=== PATIENT | female | born 1945 | race Caucasian/White ===

== ENCOUNTER 2017-07-06 11:10 | Inpatient (IN) | payer OTHER, MEDICAID ==
--- NOTE | 2017-07-06 11:20 | ED Physician Chart ---
ED Chief Complaint/HPI - Patient Information Date Seen:: 07/06/17 Time Seen:: 11:18 Chief Complaint:: Cough and SOB History of Present Illness:: 71 yo female had cold symptoms for 1 week, followed by headache, SOB, cough productive of purulent sputum for 1 day. She denied fever. 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) Social History: Non Smoker, No Alcohol, No Drug Use Surgical History: (x 1) Family Medical History - Family Member Mother History Unknown: Yes Hx Family Hypertension: Yes Hx Family Diabetes: Yes ED Physical Exam - Physical Examination General/Constitutional: Awake, Alert Head: Atraumatic Eyes: PERRL, EOMI Skin: No ecchymosis ENMT: Nasal exam nl Neck: No nuchal rigidity Other Respiratory comments:: Cough, Rales worse RLL Cardio Vascular: RRR, No murmur, gallop, rubs, NL S1 S2 GI: No tenderness/rebounding/guarding Extremities: normal strength in all extremities Neuro/Psych: No focal deficits ED Labs/Radiology/EKG Results - Radiology Results Results: CXR: Right lung apex infiltrate possibly from previous TB infection BLE venous u/s: no evidence of DVT ED Assessment - Assessment General Assessment: Bronchitis Leukocytosis Hypoxemia Elevated D-dimer possibly due to age and infection Assessment/Comments:: CBC, CMP CXR, ABG DuoNeb Rocephin Zithromycin B/L lower extremity u/s Admit to telemetry ED Septic Shock - . Is Septic Shock (SBP<90, OR Lactate>4 mmol\L) present?: No ED Reassessment (Disposition) - Reassessment Reassessment Condition:: Improved - Patient Disposition Discharge/Transfer:: Acute Care w/in this hosp Admitting Medical Physician:: Edward Herr ED Discharge Plan - Patient Disposition Admit/Discharge/Transfer: Acute Care w/in this hosp
[2017-07-06] MEDS ORDERED: Albuterol/Ipratropium Neb 3 ML AERS HHN ONE ×2 (11:22→11:27)
[2017-07-06 12:06] LABS: % MONOCYTES 8.1 % (2.0-10.0); BASOPHILE ABSOLUTE 0.1 Th/cumm (0-0.2); EOSINOPHILE ABSOLUTE 0.3 Th/cmm (0.1-0.4)
[2017-07-06 12:07] LABS: ALB/GLOB RATIO 1.2 (1.0-1.8); ALBUMIN 4.3 gm/dL (3.7-5.3); ALKALINE PHOSPHATASE 93 U/L (34-104); BILIRUBIN,TOTAL 0.5 mg/dL (0.3-1.0); BUN - UREA NITROGEN 15 mg/dL (7-25); CALCIUM SERUM 9.8 mg/dL (8.6-10.3); CARBON DIOXIDE 29.8 mEq/L (21.0-31.0); CHLORIDE 99 mEq/L (98-107); CREATININE - SERUM 0.4 mg/dL (0.6-1.2); GFR AFRICAN-AMERICAN > 60.0 ml/min (>90); GFR NON AFRICAN-AMERICAN > 60.0 ml/min; GLUCOSE 159 mg/dL (70-105); POTASSIUM SERUM 3.8 mEq/L (3.5-5.1); SGOT 19 U/L (13-39); SGPT/ALT 33 U/L (7-52); SODIUM SERUM 136 mEq/L (136-145)
[2017-07-06 12:09] LABS: % BASOPHILS 0.4 % (0.0-2.0); % EOSINOPHILS 2.3 % (0.0-5.0); % NEUTROPHILS 77.2 % (40.0-80.0); HEMATOCRIT 38.8 % (41.0-60); LYMPHOCYTE ABSOLUTE 1.5 Th/cmm (1.5-3.0); MEAN CELL VOLUME 91.3 fl (81-100); MEAN CORPUSCULAR HEMOGLOBIN 30.6 pg (27.0-31.0); MEAN CORPUSCULAR HGB CONC 33.5 pg (28.0-36.0); MEAN PLATELET VOLUME 8.7 fl; NEUTROPHILE ABSOLUTE 9.9 Th/cmm (1.8-8.0); PLATELET COUNT 232 Th/cmm (150-400); RED BLOOD COUNT 4.25 Mil/cmm (3.80-5.20); RED CELL DISTRIBUTION WIDTH 12.5 % (11.5-20.0)
[2017-07-06 12:10] LABS: WHITE BLOOD COUNT 12.8 Th/cmm (4.8-10.8)
[2017-07-06] MEDS ORDERED: cefTRIAXone 1 GM in Sodium Chloride 0.9% 50 ML IV ONE (12:18)
[2017-07-06] MEDS ORDERED: Azithromycin 500 MG in Sodium Chloride 0.9% 250 ML IV ONE (12:18)
[2017-07-06 12:49] LABS: pH 7.46 (7.35-7.45)
[2017-07-06 12:51] LABS: ALLEN TEST Positive
[2017-07-06] MEDS ORDERED: Sodium Chloride 0.9% 1,000 ML IV ONE (13:11)
[2017-07-06] MEDS ORDERED: Sodium Chloride 0.9% 1,000 ML IV SCH (16:07)
[2017-07-06] MEDS ORDERED: Pneumococcal Vaccine 0.5 mL Vial IM ONE (16:59)
[2017-07-06] MEDS ORDERED: INSULIN ASPART SLIDING SCALE 100 UNITS/ML UNIT SUBQ SCH (18:00)
[2017-07-06] MEDS: Atorvastatin Calcium 10 MG TAB PO SCH (21:13)
[2017-07-06] MEDS: INSULIN ASPART SLIDING SCALE 100 UNITS/ML UNIT SUBQ SCH (21:43)
[2017-07-07] MEDS: Promethazine DM 6.25/15mg-5mL 5 ML SYR PO PRN ×3 (03:09→21:22)
[2017-07-07 06:26] LABS: % BASOPHILS 0.1 % (0.0-2.0); % EOSINOPHILS 2.1 % (0.0-5.0); % LYMPHOCYTES 15.2 % (20.0-50.0); % NEUTROPHILS 73.6 % (40.0-80.0); EOSINOPHILE ABSOLUTE 0.3 Th/cmm (0.1-0.4); LYMPHOCYTE ABSOLUTE 2.5 Th/cmm (1.5-3.0); MEAN CELL VOLUME 90.9 fl (81-100); MEAN CORPUSCULAR HEMOGLOBIN 31.3 pg (27.0-31.0); MEAN CORPUSCULAR HGB CONC 34.4 pg (28.0-36.0); MEAN PLATELET VOLUME 8.9 fl; MONOCYTE ABSOLUTE 1.5 Th/cmm (0.3-1.0); NEUTROPHILE ABSOLUTE 12.2 Th/cmm (1.8-8.0); PLATELET COUNT 219 Th/cmm (150-400); RED BLOOD COUNT 3.84 Mil/cmm (3.80-5.20); RED CELL DISTRIBUTION WIDTH 12.5 % (11.5-20.0)
[2017-07-07 06:42] LABS: ALB/GLOB RATIO 1.1 (1.0-1.8); ALBUMIN 3.7 gm/dL (3.7-5.3); ALKALINE PHOSPHATASE 76 U/L (34-104); BILIRUBIN,TOTAL 0.7 mg/dL (0.3-1.0); BUN - UREA NITROGEN 10 mg/dL (7-25); CARBON DIOXIDE 28.3 mEq/L (21.0-31.0); CHLORIDE 103 mEq/L (98-107); CREATININE - SERUM 0.4 mg/dL (0.6-1.2); GFR AFRICAN-AMERICAN > 60.0 ml/min (>90); GFR NON AFRICAN-AMERICAN > 60.0 ml/min; GLUCOSE 126 mg/dL (70-105); POTASSIUM SERUM 3.3 mEq/L (3.5-5.1); SGOT 14 U/L (13-39); SGPT/ALT 24 U/L (7-52); SODIUM SERUM 138 mEq/L (136-145)
[2017-07-07 06:59] LABS: WHITE BLOOD COUNT 16.5 Th/cmm (4.8-10.8)
--- NOTE | 2017-07-07 07:24 | Diagnostic Imaging Report ---
Portable chest x-ray Time: 1153 hours History: Cough Allowing for portable technique the heart size is normal. No focal pulmonary parenchymal processes. No hilar or mediastinal abnormalities. Ill-defined haziness is noted in the right apex comparison studies recommended. If. Is not available for review, follow-up examination is recommended. CT examination of chest on the helpful. Impression: 1. No acute abnormalities. 2. Ill-defined density in the right apex might represent scarring, clinical correlation is recommended.
--- NOTE | 2017-07-07 07:27 | Diagnostic Imaging Report ---
Exam: Ultrasound examination deep venous circulation lower extremities. HISTORY: DVT Findings: Real-time ultrasound exam of the lower extremities performed multiple planes utilizing color Doppler technique. The study demonstrates normal compressibility and augmentation of deep venous system throughout. IMPRESSION: No evidence of deep venous thrombosis lower extremities bilaterally.
--- NOTE | 2017-07-07 09:04 | History and Physical ---
History of Present Illness - HPI Chief Complaint: Cough and fever HPI: Patient refer that one week ago started with cough and fever, latelly she has having cough with green mucus. She had SOB and came to ER for evaluation. 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 Pertinent Hx GI: Report: No Pertinent Hx Psych: Report: No Pertinent Hx Musculoskeletal: Report: No Pertinent Hx Rheumatologic: Report: No pertinent Hx Infectious Disease: Report: No Pertinent Hx Renal/: Report: No Pertinent Hx Endocrine: Report: Diabetes Dermatology: Report: No Pertinent Hx - Past Surgical History Past Surgical History: Other (One ) Family Medical History - Family Member Mother History Unknown: Yes Hx Family Hypertension: Yes Hx Family Diabetes: Yes Social History Smoke: No Alcohol: None Drugs: None Lives: With Family Domestic Violence: Negative - Medications Home Medications: Home Medication Medication Instructions Recorded Type metFORMIN [Glucophage] 500 mg PO BID 03/05/12 History Atorvastatin Calcium [Lipitor] 20 mg PO HS 07/06/17 History Ibuprofen [Motrin*] 600 mg PO Q6H PRN 07/06/17 History - Allergies Allergies/Adverse Reactions: Allergies Allergy/AdvReac Type Severity Reaction Status Date / Time No Known Allergies Allergy Verified 07/06/17 11:22 Review of Systems - Review of Systems Constitutional: Report: Weakness Eyes: Report: No Significant ENT: Report: No Significant Respiratory: Report: Cough, Shortness of Breath, Wheezing Cardiovascular: Report: No Significant Gastrointestinal: Report: No Significant Genitourinary: Report: No Significant Musculoskeletal: Report: No Significant Skin: Report: No Significant Neurological: Report: No Significant Physical Exam - Physical Exam HEENT: Report: Ears Nose Throat within normal limits Neck: Report: Within normal limits Cardiovascular Systems: Report: Regular, Rate and Rhythm Respiratory: Report: Wheezing, Rhonchi Abdomen: Report: Non-tender to palpation Back: Report: Inspection of back is within normal limits. Extremities: Report: Non-tender to palpation. Skin: Report: Color of skin is within normal limits Neuro/Psych: Report: Mood affect is within normal limits - Lab Results All Lab Results last 24 hours: Laboratory Results - last 24 hr 07/06/17 07/06/17 07/07/17 17:43 21:30 05:17 WBC 16.5 H D RBC 3.84 Hgb 12.0 Hct 35.0 L MCV 90.9 MCH 31.3 H MCHC Differential 34.4 RDW 12.5 Plt Count 219 MPV 8.9 Neutrophils % 73.6 Lymphocytes % 15.2 L Monocytes % 9.0 Eosinophils % 2.1 Basophils % 0.1 Sodium Potassium Chloride Carbon Dioxide Anion Gap BUN Creatinine Est GFR ( Amer) Est GFR (Non-Af Amer) BUN/Creatinine Ratio Glucose POC Glucose 145 H 140 H Calcium Total Bilirubin AST ALT Alkaline Phosphatase Total Protein Albumin Globulin Albumin/Globulin Ratio 07/07/17 05:17 WBC RBC Hgb Hct MCV MCH MCHC Differential RDW Plt Count MPV Neutrophils % Lymphocytes % Monocytes % Eosinophils % Basophils % Sodium 138 Potassium 3.3 L Chloride 103 Carbon Dioxide 28.3 Anion Gap 10.0 BUN 10 Creatinine 0.4 L Est GFR ( Amer) > 60.0 Est GFR (Non-Af Amer) > 60.0 BUN/Creatinine Ratio 25.0 Glucose 126 H POC Glucose Calcium 9.0 Total Bilirubin 0.7 AST 14 ALT 24 Alkaline Phosphatase 76 Total Protein 7.0 Albumin 3.7 Globulin 3.3 Albumin/Globulin Ratio 1.1 - Assessment Assessment: Current Active Problems Problem Status Onset DYSPNEA WITH COUGH AND HEADACHE Acute Patient is awake, alert, calm in no acute distress. Dx: Bronchitis, DM. - Plan Plan: Patient in Ceftriaxone, Breathing treatment, insulin scale. CT angio will be done. Consult with Pulmonology request. Will continue to monitor.
[2017-07-07] MEDS ORDERED: IOHEXOL 350mgI/mL 150mL IV ONE (09:20)
[2017-07-07] MEDS: INSULIN ASPART SLIDING SCALE 100 UNITS/ML UNIT SUBQ SCH ×3 (09:30→21:22)
[2017-07-07] MEDS ORDERED: Albuterol Nebulizer 2.5mg/3mL HHN ONE (09:36)
[2017-07-07] MEDS: Albuterol Nebulizer 2.5mg/3mL HHN SCH ×3 (09:37→18:53)
[2017-07-07] MEDS: cefTRIAXone 1 GM in Sodium Chloride 0.9% 50 ML IV SCH (12:58)
[2017-07-07] MEDS: Potassium Chloride Elixir 20 mEq /15 mL UDC GT SCH (12:58)
[2017-07-07] MEDS ORDERED: Sodium Chloride 0.9% 1,000 ML IV SCH (19:08)
[2017-07-07] MEDS: Atorvastatin Calcium 10 MG TAB PO SCH (21:09)
[2017-07-07] MEDS: methylPREDNISolone SS 40 mg Vial IVP SCH (21:10)
[2017-07-08] MEDS: Albuterol Nebulizer 2.5mg/3mL HHN SCH ×3 (00:27→13:18)
[2017-07-08] MEDS: methylPREDNISolone SS 40 mg Vial IVP SCH ×2 (05:08→12:47)
[2017-07-08 05:34] LABS: HEMATOCRIT 34.5 % (41.0-60); HEMOGLOBIN 11.8 gm/dL (12-16); MEAN CORPUSCULAR HEMOGLOBIN 31.2 pg (27.0-31.0)
[2017-07-08 05:46] LABS: % BASOPHILS 0.4 % (0.0-2.0); % EOSINOPHILS 0.1 % (0.0-5.0); % LYMPHOCYTES 6.7 % (20.0-50.0); % MONOCYTES 1.4 % (2.0-10.0); % NEUTROPHILS 91.4 % (40.0-80.0); LYMPHOCYTE ABSOLUTE 0.8 Th/cmm (1.5-3.0); MEAN CELL VOLUME 91.4 fl (81-100); MEAN CORPUSCULAR HGB CONC 34.1 pg (28.0-36.0); MONOCYTE ABSOLUTE 0.2 Th/cmm (0.3-1.0); NEUTROPHILE ABSOLUTE 10.8 Th/cmm (1.8-8.0); PLATELET COUNT 217 Th/cmm (150-400); RED BLOOD COUNT 3.77 Mil/cmm (3.80-5.20); RED CELL DISTRIBUTION WIDTH 12.4 % (11.5-20.0)
[2017-07-08 05:47] LABS: WHITE BLOOD COUNT 11.8 Th/cmm (4.8-10.8)
[2017-07-08 05:55] LABS: ALB/GLOB RATIO 1.1 (1.0-1.8); ALBUMIN 3.8 gm/dL (3.7-5.3); ALKALINE PHOSPHATASE 85 U/L (34-104); ANION GAP 10.3 (7.0-16.0); BILIRUBIN,TOTAL 0.5 mg/dL (0.3-1.0); BUN - UREA NITROGEN 13 mg/dL (7-25); CARBON DIOXIDE 24.6 mEq/L (21.0-31.0); CHLORIDE 102 mEq/L (98-107); CREATININE - SERUM 0.4 mg/dL (0.6-1.2); GFR AFRICAN-AMERICAN > 60.0 ml/min (>90); GFR NON AFRICAN-AMERICAN > 60.0 ml/min; POTASSIUM SERUM 3.9 mEq/L (3.5-5.1); SGOT 20 U/L (13-39); SGPT/ALT 31 U/L (7-52); SODIUM SERUM 133 mEq/L (136-145); TOTAL PROTEIN,SERUM 7.4 gm/dL (6.0-8.3)
[2017-07-08 05:56] LABS: GLUCOSE 261 mg/dL (70-105)
[2017-07-08] MEDS: Potassium Chloride Elixir 20 mEq /15 mL UDC GT SCH (09:07)
[2017-07-08] MEDS: INSULIN ASPART SLIDING SCALE 100 UNITS/ML UNIT SUBQ SCH (09:10)
[2017-07-08] MEDS: Promethazine DM 6.25/15mg-5mL 5 ML SYR PO PRN (09:17)
--- NOTE | 2017-07-08 11:35 | Diagnostic Imaging Report ---
CT Chest without IV contrast HISTORY: Mass COMPARISON: Chest x-ray 07/06/2017. Technique: Axial images were obtained from the base of the neck to the upper abdomen without IV contrast. Reconstructions were made. Total DLP to 63, CTD I 7.6 Findings: Evaluation of the mediastinum is limited due to lack of IV contrast. A few borderline prominent mediastinal lymph nodes are noted the largest located within the precarinal region measuring 1.5 x 0.9 cm. Heart size is normal. Mild atherosclerotic vascular disease is noted. No evidence of any aortic aneurysm. No evidence of a pericardial effusion. The lung adame demonstrates diffuse chronic lung changes with linear densities which may be due to atelectasis versus scarring. Mild areas of bronchiectasis are noted most pronounced within the right upper lobe. There are also ill defined right apical infiltrates with mild volume loss in this region and right apical pleural thickening. Bibasal pleural thickening is also noted. Small hiatal hernia is noted. The upper abdomen demonstrates 2.5 cm right adrenal nodule with areas of Hounsfield units measuring less than 10. Small gallstones are noted with contracted gallbladder. Diffuse degenerative changes of the spine are noted with moderate chronic compression deformity of T12. IMPRESSION: Right upper lobe ill-defined infiltrates extending to the apex. Findings may be due to infectious or neoplastic etiology. Short-term follow-up after resolution of acute symptoms is recommended to ensure resolution. Correlation with old exams also be helpful. Chronic lung changes with areas of bronchiectasis greatest within the right upper lobe. Borderline prominent mediastinal lymph nodes, nonspecific 2.5 cm right adrenal nodule with Hounsfield units suggestive of a lipid rich adenoma. Correlation with clinical findings of old exams is recommended. In addition short-term follow surveillance is recommended given findings on CT of the chest to ensure stability. Gallstones within contracted gallbladder. Mild atherosclerotic vascular disease Small hiatal hernia.
[2017-07-08 12:21] LABS: A1C % 7.7 % (4.0-6.0)
[2017-07-08] MEDS: cefTRIAXone 1 GM in Sodium Chloride 0.9% 50 ML IV SCH (12:46)
--- NOTE | 2017-07-08 14:37 | Discharge Summary ---
General Discharge Summary - Discharge Summary Date of Admission: 07/06/17 Admitting Diagnosis: Bronchitis, DM Patient Problems: All Active Problems DYSPNEA WITH COUGH AND HEADACHE (Acute) Discharge Date: 07/08/17 Discharge Diagnosis: Pneumonia, DM Laboratory Findings: Laboratory Tests 07/06/17 07/06/17 07/07/17 17:43 21:30 05:17 WBC 16.5 H D RBC 3.84 Hgb 12.0 Hct 35.0 L MCV 90.9 MCH 31.3 H MCHC Differential 34.4 RDW 12.5 Plt Count 219 MPV 8.9 Neutrophils % 73.6 Lymphocytes % 15.2 L Monocytes % 9.0 Eosinophils % 2.1 Basophils % 0.1 Sodium Potassium Chloride Carbon Dioxide Anion Gap BUN Creatinine Est GFR ( Amer) Est GFR (Non-Af Amer) BUN/Creatinine Ratio Glucose POC Glucose 145 H 140 H Hemoglobin A1c % Calcium Total Bilirubin AST ALT Alkaline Phosphatase Total Protein Albumin Globulin Albumin/Globulin Ratio 07/07/17 07/07/17 07/07/17 05:17 09:27 13:39 WBC RBC Hgb Hct MCV MCH MCHC Differential RDW Plt Count MPV Neutrophils % Lymphocytes % Monocytes % Eosinophils % Basophils % Sodium 138 Potassium 3.3 L Chloride 103 Carbon Dioxide 28.3 Anion Gap 10.0 BUN 10 Creatinine 0.4 L Est GFR ( Amer) > 60.0 Est GFR (Non-Af Amer) > 60.0 BUN/Creatinine Ratio 25.0 Glucose 126 H POC Glucose 116 H 218 H Hemoglobin A1c % Calcium 9.0 Total Bilirubin 0.7 AST 14 ALT 24 Alkaline Phosphatase 76 Total Protein 7.0 Albumin 3.7 Globulin 3.3 Albumin/Globulin Ratio 1.1 07/07/17 07/08/17 07/08/17 21:17 05:15 05:15 WBC 11.8 H D RBC 3.77 L Hgb 11.8 L Hct 34.5 L MCV 91.4 MCH 31.2 H MCHC Differential 34.1 RDW 12.4 Plt Count 217 MPV 9.0 Neutrophils % 91.4 H Lymphocytes % 6.7 L Monocytes % 1.4 L Eosinophils % 0.1 Basophils % 0.4 Sodium 133 L Potassium 3.9 Chloride 102 Carbon Dioxide 24.6 Anion Gap 10.3 BUN 13 Creatinine 0.4 L Est GFR ( Amer) > 60.0 Est GFR (Non-Af Amer) > 60.0 BUN/Creatinine Ratio 32.5 Glucose 261 H D POC Glucose 158 H Hemoglobin A1c % Calcium 9.0 Total Bilirubin 0.5 AST 20 ALT 31 Alkaline Phosphatase 85 Total Protein 7.4 Albumin 3.8 Globulin 3.6 Albumin/Globulin Ratio 1.1 07/08/17 05:15 WBC RBC Hgb Hct MCV MCH MCHC Differential RDW Plt Count MPV Neutrophils % Lymphocytes % Monocytes % Eosinophils % Basophils % Sodium Potassium Chloride Carbon Dioxide Anion Gap BUN Creatinine Est GFR ( Amer) Est GFR (Non-Af Amer) BUN/Creatinine Ratio Glucose POC Glucose Hemoglobin A1c % 7.7 H Calcium Total Bilirubin AST ALT Alkaline Phosphatase Total Protein Albumin Globulin Albumin/Globulin Ratio Hospital Course: Patient responded to treatment WBC improved, patient no longer with SOB, O2 sat WNL. Treatment: Patient received IV NS, Ceftriaxone IV, Albuterol breathing treatment and nasal O2. Condition at Discharge: Stable Disposition: PT DISCHARGED HOME Home Medications: Home Medication Medication Instructions Recorded Type metFORMIN [Glucophage] 500 mg PO BID 03/05/12 History Atorvastatin Calcium [Lipitor] 20 mg PO HS 07/06/17 History Ibuprofen [Motrin*] 600 mg PO Q6H PRN 07/06/17 History Inpatient Medications: Current Medications Acetaminophen (Tylenol) 650 mg PO Q6H PRN PRN Reason: Pain (Mild) Stop: 09/04/17 22:59 Last Admin: 07/06/17 23:17 Dose: 650 mg Albuterol Sulfate (Albuterol 2.5mg/3ml Neb Ud) 2.5 mg HHN Q6HRT [facility] Stop: 09/05/17 09:14 Last Admin: 07/08/17 13:18 Dose: 2.5 mg Atorvastatin Calcium (Lipitor) 20 mg PO HS [facility] Stop: 09/04/17 20:59 Last Admin: 07/07/17 21:09 Dose: 20 mg Ceftriaxone Sodium 1 gm/ (Sodium Chloride) 50 mls @ 100 mls/hr IV Q24HR [facility] Stop: 09/05/17 11:59 Last Admin: 07/08/17 12:46 Dose: 100 mls/hr Sodium Chloride (Nacl 0.9%) 1,000 mls @ 40 mls/hr IV .Q24H [facility] Stop: 09/04/17 16:06 Last Infusion: 07/08/17 06:23 Dose: 40 mls/hr Insulin Aspart (Novolog Insulin Sliding Scale) 0 units SUBQ TID [facility] PRN Reason: Protocol Stop: 09/04/17 20:59 Last Admin: 07/08/17 09:10 Dose: 10 units Methylprednisolone Sodium Succinate (Solu-Medrol) 40 mg IVP Q8HR [facility] Stop: 09/05/17 20:59 Last Admin: 07/08/17 12:47 Dose: 40 mg Potassium Chloride (Potassium Chloride Elixir) 20 meq GT DAILY [facility] Stop: 09/05/17 08:59 Last Admin: 07/08/17 09:07 Dose: 20 meq Promethazine HCl/Dextromethorphan (Phenergan Dm 6.25/15mg-5 Ml) 5 ml PO Q6HR PRN PRN Reason: Cough Stop: 09/04/17 23:00 Last Admin: 07/08/17 09:17 Dose: 5 ml Activity: As Tolerated Discharge Diet: Regular Consults and Follow-Up: MELIDA HUIZAR [Other] Consulting Speciality: Other (PCP)
--- NOTE | 2017-07-08 15:43 | Consultation ---
DATE OF CONSULTATION: 07/07/2017 REFERRING PHYSICIAN: Dr. Herr. Thank you very much for this consultation. HISTORY OF PRESENT ILLNESS: This is a 71-year-old female who presents with cough, congestion, some shortness of breath and phlegm production. The patient states she has been sick for a few days and came in and started on IV antibiotics, nebulizer treatment. Upon further questioning, the patient mentioned she has history of tuberculosis over 24 years ago, stayed in the hospital for 3 months, treated for it. No diaphoresis, no weight loss, no night sweats. SOCIAL HISTORY: Smoker quit over 20 years ago. PHYSICAL EXAMINATION: GENERAL: Awake, alert, not in acute distress. VITAL SIGNS: Temperature 98.1, pulse 100, respiration 18, blood pressure 142/57, saturation 100% room air. HEENT: Atraumatic, normocephalic. Pupils react to light and accommodation. Ears, nose, and throat normal. NECK: Supple. No JVD. CHEST: There is rhonchi and wheezing bilaterally. HEART: Regular rate and rhythm. ABDOMEN: Soft. EXTREMITIES: No edema. DIAGNOSTIC DATA: Chest x-ray, some pulmonary congestion, right apical lesion. LABORATORY DATA: WBC 16.5, hemoglobin 12.0, platelets 219. Sodium is 130, potassium 3.3, BUN is 10, creatinine 0.4. D-dimer mildly elevated. IMPRESSION: 1. This is a 71-year-old female with acute bronchitis. 2. History of old tuberculosis, right upper lobe related to the apical scar from the previous infection. PLAN: 1. IV antibiotics. 2. Nebulizer. 3. Solu-Medrol for bronchospasm. 4. CTA chest, no need for contrast, for further evaluation. Thank you very much for this consultation. I will follow the patient with you. JOB# [id number] [email or web address]
== END 2017-07-08 16:00 | disposition home or self-care (01) | DRG 871 ==
LOC: ER 11:10 → TELE 14:31
PROVIDERS: ADMIT General Practice; ATTEND General Practice
DX: A41.9 Sepsis, unspecified organism (principal); J18.9 Pneumonia, unspecified organism; E11.9 Type 2 diabetes mellitus without complications; J20.9 Acute bronchitis, unspecified; I25.10 Atherosclerotic heart disease of native coronary artery without angina pectoris; E78.5 Hyperlipidemia, unspecified; R09.02 Hypoxemia; Z82.49 Family history of ischemic heart disease and other diseases of the circulatory system; Z83.3 Family history of diabetes mellitus; Z79.84 Long term (current) use of oral hypoglycemic drugs; Z87.891 Personal history of nicotine dependence
CPT/HCPCS: 36415-UA; 36600-90; 71045-TC; 71250-TC; 80053-TC; 82803-TC; 82948-90; 83036-90; 83605; 83880-TC; 84484-TC; 85007-TC; 85025-TC; 85027-TC; 85379-TC; 93005; 93970-TC-50; 94640; 94760; J0456; J0696; J1815; J2920; J7030; J7613; Z7610

== ENCOUNTER 2018-06-04 09:09 | Emergency (ER) | payer OTHER, MEDICAID ==
--- NOTE | 2018-06-04 09:20 | ED Physician Chart ---
ED Chief Complaint/HPI - Patient Information Date Seen:: 06/04/18 Time Seen:: 09:10 Chief Complaint:: dysuria History of Present Illness:: Patient's had dysuria for 8 days. No chills, fever, back pain. No abdominal pain. Allergies:: Allergies Allergy/AdvReac Type Severity Reaction Status Date / Time No Known Allergies Allergy Verified 07/06/17 11:22 Historian:: Patient Review:: Nurse's Note Reviewed ED Review of Systems - Review of Systems General/Constitutional: No fever, No chills Skin: No skin lesions Head: No headache Eyes: No loss of vision ENT: No earache Neck: No neck pain Cardio Vascular: No chest pain Pulmonary: No SOB GI: No nausea, No vomiting, No diarrhea G/U: Dysuria Musculoskeletal: No bone or joint pain Endocrine: No polyuria Psychiatric: No prior psych history, No depression Hematopoietic: No bruising Allergic/Immuno: No urticaria Neurological: No syncope ED Past Medical History - Past Medical History Past Medical History: DM Family History: Diabetes Melitus Social History: Non Smoker, No Alcohol Surgical History: None Psychiatricy History: Depression Medication: Reviewed Family Medical History - Family Member Mother History Unknown: Yes Hx Family Hypertension: Yes Hx Family Diabetes: Yes ED Physical Exam - Physical Examination General/Constitutional: Awake, Well-developed, well-nourished, Alert, No distress, GCS 15, Non-toxic appearing, Ambulatory Head: Atraumatic Eyes: Lids, conjuctiva normal, PERRL, EOMI Skin: Nl inspection, No rash, No skin lesions, No ecchymosis, Well hydrated, No lymphadenopathy ENMT: External ears, nose nl, Nasal exam nl, Lips, teeth, gums nl Neck: Nontender, Full ROM w/o pain, No JVD, No nuchal rigidity, No bruit, No mass, No stridor Respiratory: Nl effort/Exclusion, Clear to Auscultation, No Wheeze/Rhonchi/Rales Cardio Vascular: RRR, No murmur, gallop, rubs, NL S1 S2 GI: No tenderness/rebounding/guarding, No organomegaly, No hernia, Normal BS's, Nondistended, No mass/bruits, No McBurney tenderness : No CVA tenderness Extremities: No tenderness or effusion, Full ROM, normal strength in all extremities, No edema, Normal digits & nails Neuro/Psych: Alert/oriented, DTR's symmetric, Normal sensory exam, Normal motor strength, Judgement/insight normal, Mood normal, Normal gait, No focal deficits Misc: Normal back, No paraspinal tenderness ED Labs/Radiology/EKG Results - Lab Results Results: Abnormal Lab Results 06/04/18 09:20 Urine Source RANDOM Urine Color YELLOW Urine Clarity CLOUDY H Urine pH 6.0 Ur Specific [place] 1.025 Urine Protein TRACE Urine Glucose (UA) NEGATIVE Urine Ketones NEGATIVE Urine Blood SMALL H Urine Nitrate POSITIVE H Urine Bilirubin NEGATIVE Urine Urobilinogen 0.2 Ur Leukocyte Esterase MODERATE H Urine RBC 2-5 Urine WBC >100 H Ur Epithelial Cells FEW Urine Bacteria 4+ H ED Septic Shock - . Is Septic Shock (SBP<90, OR Lactate>4 mmol\L) present?: No ED Reassessment (Disposition) - Reassessment Reassessment Condition:: Unchanged - Diagnosis Diagnosis:: Urinary tract infection; cystitis - Aftercare/Follow up Instructions Medication Prescribed:: Macrobid 100 mg twice a day 1 week Macrobid 100 mg twice a day for 1 week and Pyridium 100 mg #12 one 3 times a day - Patient Disposition Discharge/Transfer:: Home Condition at Disposition:: Stable, Unchanged
[2018-06-04 09:27] LABS: URINE SOURCE RANDOM
[2018-06-04 09:31] LABS: URINE BILIRUBIN NEGATIVE (NEGATIVE); URINE BLOOD SMALL (NEGATIVE); URINE GLUCOSE (UA) NEGATIVE (NEGATIVE); URINE KETONE NEGATIVE (NEGATIVE); URINE LEUKOCYTE ESTERASE MODERATE (NEGATIVE); URINE MICROSCOPIC INDICATED? YES; URINE NITRATE POSITIVE (NEGATIVE); URINE PROTEIN TRACE mg/dL (NEGATIVE); URINE UROBILINOGEN 0.2 E.U./dL (0.2 - 1.0)
[2018-06-04 09:37] LABS: URINE CLARITY CLOUDY (CLEAR); URINE COLOR YELLOW
[2018-06-04 09:39] LABS: URINE BACTERIA 4+ /hpf (NONE SEEN); URINE EPITHELIAL CELLS FEW /lpf (FEW); URINE WBC >100 /hpf (0-5)
== END 2018-06-04 10:25 | disposition home or self-care (01) ==
LOC: ER 09:09
DX: N39.0 Urinary tract infection, site not specified (principal); N30.90 Cystitis, unspecified without hematuria; E11.9 Type 2 diabetes mellitus without complications; F32.9 Major depressive disorder, single episode, unspecified
CPT/HCPCS: 81001-TC; 87086-90; Z7502

== ENCOUNTER 2018-06-15 09:39 | Emergency (ER) | payer OTHER, MEDICAID ==
[2018-06-15 10:12] LABS: % BASOPHILS 0.9 % (0.0-2.0); % EOSINOPHILS 9.4 % (0.0-5.0); % LYMPHOCYTES 17.4 % (20.0-50.0); % MONOCYTES 9.3 % (2.0-10.0); BASOPHILE ABSOLUTE 0.1 Th/cumm (0-0.2); EOSINOPHILE ABSOLUTE 0.6 Th/cmm (0.1-0.4); HEMATOCRIT 37.4 % (41.0-60); HEMOGLOBIN 12.8 gm/dL (12-16); LYMPHOCYTE ABSOLUTE 1.1 Th/cmm (1.5-3.0); MEAN CELL VOLUME 89.6 fl (81-100); MEAN CORPUSCULAR HEMOGLOBIN 30.7 pg (27.0-31.0); MEAN CORPUSCULAR HGB CONC 34.2 pg (28.0-36.0); MEAN PLATELET VOLUME 8.4 fl; MONOCYTE ABSOLUTE 0.6 Th/cmm (0.3-1.0); NEUTROPHILE ABSOLUTE 3.8 Th/cmm (1.8-8.0); PLATELET COUNT 172 Th/cmm (150-400); RED BLOOD COUNT 4.17 Mil/cmm (3.80-5.20); RED CELL DISTRIBUTION WIDTH 12.9 % (11.5-20.0); WHITE BLOOD COUNT 6.2 Th/cmm (4.8-10.8)
--- NOTE | 2018-06-15 10:15 | ED Physician Chart ---
ED Chief Complaint/HPI - Patient Information Date Seen:: 06/15/18 Time Seen:: 10:00 Chief Complaint:: COUGH History of Present Illness:: THIS IS A 72 YO FEMALE SENT HERE FOR AN EVALUATION BY HER PMD. SHE HAS BEEN COUGHING WITH CHEST CONGESTION FOR THREE DAYS AND SOME FEVER. THE PATIENT DENIES NAUSEA, VOMITING AND DIARRHEA. THE PATIENT HAS A SIGNIFICANT PAST HISTORY WITH A DIAGNOSIS OF T.B. AND SMOKED FOR MANY YEARS SOME 20 YRS AGO. SHE ALSO HAS DIABETES AND ELEVATED LIPIDS. Allergies:: Allergies Allergy/AdvReac Type Severity Reaction Status Date / Time No Known Allergies Allergy Verified 07/06/17 11:22 Vitals:: Vital Signs - 8 hr 06/15/18 09:51 Temp 97.9 F HR 85 RR 21 BP 154/66 O2 Sat % 97 Historian:: Patient, Medical Records Review:: Nurse's Note Reviewed, Old Chart Reviewed ED Review of Systems - Review of Systems General/Constitutional: Fever, No chills, No weight loss, No weakness, No diaphoresis, No edema, No loss of appetite Skin: No skin lesions, No rash, No bruising Head: No headache, No light-headedness Eyes: No loss of vision, No pain, No diplopia ENT: No earache, No nasal drainage, No sore throat, No tinnitus Neck: No neck pain, No swelling, No thyromegaly, No stiffness, No mass noted Cardio Vascular: No chest pain, No palpitations, No PND, No orthopnea, No edema Pulmonary: No SOB, Cough, No sputum, No wheezing GI: No nausea, No vomiting, No diarrhea, No pain, No melena, No hematochezia, No constipation, No hematemesis G/U: No dysuria, No frequency, No hematuria Musculoskeletal: No bone or joint pain, No back pain, No muscle pain Endocrine: No polyuria, No polydipsia Psychiatric: No prior psych history, No depression, No anxiety, No suicidal ideation Hematopoietic: No bruising, No lymphadenopathy Allergic/Immuno: No urticaria, No angioedema Neurological: No syncope, No focal symptoms, No weakness, No paresthesia, No headache, No seizure, No dizziness, No confusion, No vertigo ED Past Medical History - Past Medical History Obtainable: Yes Past Medical History: HTN, DM, Asthma/COPD, Dyslipidemia Family History: None Social History: Non Smoker, No Alcohol, No Drug Use, Surgical History: Psychiatricy History: None Medication: Reviewed Family Medical History - Family Member Mother History Unknown: Yes Hx Family Hypertension: Yes Hx Family Diabetes: Yes ED Physical Exam - Physical Examination General/Constitutional: Awake, Well-developed, well-nourished, Alert, No distress, GCS 15, Non-toxic appearing, Ambulatory Head: Atraumatic Eyes: Lids, conjuctiva normal, PERRL, EOMI Skin: Nl inspection, No rash, No skin lesions, No ecchymosis, Well hydrated, No lymphadenopathy ENMT: External ears, nose nl, Nasal exam nl, Lips, teeth, gums nl Neck: Nontender, Full ROM w/o pain, No JVD, No nuchal rigidity, No bruit, No mass, No stridor Respiratory: Nl effort/Exclusion, Clear to Auscultation Other Respiratory comments:: THERE ARE BILATERAL RHONCHI HEARD Cardio Vascular: RRR, No murmur, gallop, rubs, NL S1 S2 GI: No tenderness/rebounding/guarding, No organomegaly, No hernia, Normal BS's, Nondistended, No mass/bruits, No McBurney tenderness : No CVA tenderness Extremities: No tenderness or effusion, Full ROM, normal strength in all extremities, No edema, Normal digits & nails Neuro/Psych: Alert/oriented, DTR's symmetric, Normal sensory exam, Normal motor strength, Judgement/insight normal, Mood normal, Normal gait, No focal deficits Misc: Normal back, No paraspinal tenderness ED Labs/Radiology/EKG Results - Lab Results Results: Abnormal Lab Results 06/15/18 06/15/18 06/15/18 10:05 10:05 10:05 WBC 6.2 RBC 4.17 Hgb 12.8 Hct 37.4 L MCV 89.6 MCH 30.7 MCHC Differential 34.2 RDW 12.9 Plt Count 172 MPV 8.4 Neutrophils % 63.0 Lymphocytes % 17.4 L Monocytes % 9.3 Eosinophils % 9.4 H Basophils % 0.9 PT 9.7 INR 0.93 PTT (Actin FS) 20.3 L Sodium 138 Potassium 3.4 L Chloride 100 Carbon Dioxide 28.6 Anion Gap 12.8 BUN 14 Creatinine 0.4 L Est GFR ( Amer) > 60.0 Est GFR (Non-Af Amer) > 60.0 BUN/Creatinine Ratio 35.0 Glucose 229 H Calcium 9.2 Total Bilirubin 0.5 AST 26 ALT 29 Alkaline Phosphatase 95 Total Protein 7.2 Albumin 3.8 Globulin 3.4 Albumin/Globulin Ratio 1.1 Urine Source Urine Color Urine Clarity Urine pH Ur Specific Dewitt Urine Protein Urine Glucose (UA) Urine Ketones Urine Blood Urine Nitrate Urine Bilirubin Urine Urobilinogen Ur Leukocyte Esterase Urine RBC Urine WBC Ur Epithelial Cells Urine Bacteria 06/15/18 10:22 WBC RBC Hgb Hct MCV MCH MCHC Differential RDW Plt Count MPV Neutrophils % Lymphocytes % Monocytes % Eosinophils % Basophils % PT INR PTT (Actin FS) Sodium Potassium Chloride Carbon Dioxide Anion Gap BUN Creatinine Est GFR ( Amer) Est GFR (Non-Af Amer) BUN/Creatinine Ratio Glucose Calcium Total Bilirubin AST ALT Alkaline Phosphatase Total Protein Albumin Globulin Albumin/Globulin Ratio Urine Source CLEAN C Urine Color YELLOW Urine Clarity CLEAR Urine pH 6.0 Ur Specific Dewitt >= 1.030 Urine Protein NEGATIVE Urine Glucose (UA) >=1000 H Urine Ketones NEGATIVE Urine Blood NEGATIVE Urine Nitrate NEGATIVE Urine Bilirubin NEGATIVE Urine Urobilinogen 2.0 Ur Leukocyte Esterase TRACE H Urine RBC 0-2 Urine WBC 2-5 Ur Epithelial Cells MODERATE Urine Bacteria 1+ H - Radiology Results Results: CHEST X-RAY = NAD AND OLD APEX SCARS NOTED. - EKG Interpretations EKG Time:: 10:17 Rate & Rhythm: RATE = 78, SINUS Cadogan: RIGHT AXIS ED Assessment - Assessment General Assessment: BRONCHITIS URINARY TRACT INFECTION ED Septic Shock - . Is Septic Shock (SBP<90, OR Lactate>4 mmol\L) present?: No - <6hrs of presentation: Vital Signs: Vital Signs - 8 hr 06/15/18 09:51 Temp 97.9 F HR 85 RR 21 BP 154/66 O2 Sat % 97 ED Reassessment (Disposition) - Reassessment Reassessment Condition:: Improved - Diagnosis Diagnosis:: BRONCHITIS URINARY TRACT INFECTION - Aftercare/Follow up Instructions Aftercare/Follow-Up Instructions:: Counseled pt regarding lab results/diagnosis & need follow up, Refer to Discharge Instructions, Counseled pt & family regarding lab results/diagnosis & need follow up - Patient Disposition Discharge/Transfer:: Home Condition at Disposition:: Improved
[2018-06-15 10:25] LABS: INR 0.93 (0.5-1.4); PROTHROMBIN TIME (TEST) 9.7 SECONDS (9.5-11.5)
[2018-06-15 10:29] LABS: ALB/GLOB RATIO 1.1 (1.0-1.8); ALBUMIN 3.8 gm/dL (3.7-5.3); ALKALINE PHOSPHATASE 95 U/L (34-104); ANION GAP 12.8 (7.0-16.0); BILIRUBIN,TOTAL 0.5 mg/dL (0.3-1.0); BUN - UREA NITROGEN 14 mg/dL (7-25); CALCIUM SERUM 9.2 mg/dL (8.6-10.3); CARBON DIOXIDE 28.6 mEq/L (21.0-31.0); CHLORIDE 100 mEq/L (98-107); CREATININE - SERUM 0.4 mg/dL (0.6-1.2); GFR AFRICAN-AMERICAN > 60.0 ml/min (>90); GFR NON AFRICAN-AMERICAN > 60.0 ml/min; GLUCOSE 229 mg/dL (70-105); POTASSIUM SERUM 3.4 mEq/L (3.5-5.1); SGOT 26 U/L (13-39); SGPT/ALT 29 U/L (7-52); SODIUM SERUM 138 mEq/L (136-145); TOTAL PROTEIN,SERUM 7.2 gm/dL (6.0-8.3)
[2018-06-15 10:33] LABS: URINE SOURCE CLEAN C
[2018-06-15 10:35] LABS: URINE BILIRUBIN NEGATIVE (NEGATIVE); URINE BLOOD NEGATIVE (NEGATIVE); URINE CLARITY CLEAR (CLEAR); URINE COLOR YELLOW; URINE GLUCOSE (UA) >=1000 mg/dL (NEGATIVE); URINE KETONE NEGATIVE (NEGATIVE); URINE LEUKOCYTE ESTERASE TRACE (NEGATIVE); URINE MICROSCOPIC INDICATED? YES; URINE NITRATE NEGATIVE (NEGATIVE); URINE PROTEIN NEGATIVE (NEGATIVE)
[2018-06-15 10:38] LABS: URINE BACTERIA 1+ /hpf (NONE SEEN); URINE EPITHELIAL CELLS MODERATE /lpf (FEW); URINE RBC 0-2 /hpf (0-5)
[2018-06-15] MEDS ORDERED: Potassium Chloride Elixir 20 mEq /15 mL UDC PO ONE (10:42)
[2018-06-15] MEDS ORDERED: Potassium Chloride Elixir 20 mEq /15 mL UDC ONE (10:43)
--- NOTE | 2018-06-15 11:25 | Diagnostic Imaging Report ---
Portable chest x-ray HISTORY: Shortness of breath The overall heart size appears normal. Slight accentuation of the lower interstitial lung markings. Somewhat more focal interstitial changes noted in the right upper lobe associated with pleural thickening. Findings consistent with old inflammatory disease. No hilar or mediastinal abnormalities. IMPRESSION: No acute abnormalities
== END 2018-06-15 11:12 | disposition home or self-care (01) ==
LOC: ER 09:39
DX: J40 Bronchitis, not specified as acute or chronic (principal); N39.0 Urinary tract infection, site not specified; I10 Essential (primary) hypertension; E78.5 Hyperlipidemia, unspecified; E11.9 Type 2 diabetes mellitus without complications; J44.9 Chronic obstructive pulmonary disease, unspecified; Z98.890 Other specified postprocedural states
CPT/HCPCS: 99284; 96372; 93005; 71045; 84484; 36415; 84443; 85025; 85610; 85730; 81001; 83036; 80053; 87040; J0696; Z7502

== ENCOUNTER 2018-11-04 14:56 | Emergency (ER) | payer OTHER, MEDICAID ==
--- NOTE | 2018-11-04 15:50 | ED Physician Chart ---
ED Chief Complaint/HPI - Patient Information Date Seen:: 11/04/18 Time Seen:: 15:10 Chief Complaint:: Fever History of Present Illness:: onset x 3 days of fever, S/T, cough, sinus H/As, dysuria; and congestion; pt denies trauma, LOC, ALOC, AMS, H/As, E/As, neck pain, C/P, SOB, Abd. Pain, A/N/V /D/C, hematuria, polyuria, chills, bleeding, or back/flank pain; pt is eating and urinating well; pt last urinated one hour [employer] Allergies:: Allergies Allergy/AdvReac Type Severity Reaction Status Date / Time No Known Allergies Allergy Verified 11/04/18 15:11 Vitals:: Vital Signs - 8 hr 11/04/18 11/04/18 15:11 15:34 Temp 98.3 F 98.3 F HR 82 82 RR 18 18 BP 150/64 150/64 O2 Sat % 99 99 Historian:: Patient, Family Member Review:: Nurse's Note Reviewed, Old Chart Reviewed ED Review of Systems - Review of Systems General/Constitutional: No fever, No chills, No weight loss, No weakness, No diaphoresis, No edema, No loss of appetite Skin: No skin lesions, No rash, No bruising Head: No headache, No light-headedness Eyes: No loss of vision, No pain, No diplopia ENT: No earache, Nasal drainage, Sore throat, No tinnitus Neck: No neck pain, No swelling, No thyromegaly, No stiffness, No mass noted Cardio Vascular: No chest pain, No palpitations, No PND, No orthopnea, No edema Pulmonary: No SOB, Cough, No sputum, No wheezing GI: No nausea, No vomiting, No diarrhea, No pain, No melena, No hematochezia, No constipation, No hematemesis G/U: Dysuria, No frequency, No hematuria, No nacturia Blood Donor Unit Assistant: No vaginal discharge, No abnormal vaginal bleed, No contraction Musculoskeletal: No bone or joint pain, No back pain, No muscle pain Endocrine: Polyuria, Polydipsia Psychiatric: No prior psych history, No depression, No anxiety, No suicidal ideation, No homicidal ideation, No auditory hallucination, No visual hallucination Hematopoietic: No bruising, No lymphadenopathy Allergic/Immuno: No urticaria, No angioedema Neurological: No syncope, No focal symptoms, No weakness, No paresthesia, Headache, No seizure, No dizziness, No confusion, No vertigo ED Past Medical History - Past Medical History Obtainable: Yes Past Medical History: HTN, DM, Asthma/COPD, Dyslipidemia Family History: Diabetes Melitus, HTN Social History: Non Smoker, No Alcohol, No Drug Use, Surgical History: None Psychiatricy History: None Medication: Reviewed Family Medical History - Family Member Mother History Unknown: Yes Hx Family Hypertension: Yes Hx Family Diabetes: Yes ED Physical Exam - Physical Examination General/Constitutional: Awake, Well-developed, well-nourished, Alert, No distress, GCS 15, Non-toxic appearing, Ambulatory Head: Atraumatic Eyes: Lids, conjuctiva normal, PERRL, EOMI Skin: Nl inspection, No rash, No skin lesions, No ecchymosis, Well hydrated, No lymphadenopathy ENMT: External ears, nose nl, TM canals nl, Nasal exam nl, Lips, teeth, gums nl , Tonsils nl Other ENMT comments:: Pharynx: Injected; no exudates; no abscesses; no FBs; no airway obstruction; + Nasal Congestion; + Maxillary Sinus Tenderness Neck: Nontender, Full ROM w/o pain, No JVD, No nuchal rigidity, No bruit, No mass, No stridor Other Neck comments:: supple; no meningeal signs; no cervical tenderness; no bruits Respiratory: Nl effort/Exclusion, Clear to Auscultation, No Wheeze/Rhonchi/Rales Cardio Vascular: RRR, No murmur, gallop, rubs, NL S1 S2, Carotid/Femoral/Distal pulses equal bilaterally GI: No tenderness/rebounding/guarding, No organomegaly, No hernia, Normal BS's, Nondistended, No mass/bruits, No McBurney tenderness, Rectum exam nl Other GI comments:: no pulsatile masses : No CVA tenderness Extremities: No tenderness or effusion, Full ROM, normal strength in all extremities, No edema, Normal digits & nails Neuro/Psych: Alert/oriented, DTR's symmetric, Normal sensory exam, Normal motor strength, Judgement/insight normal, Mood normal, Normal gait, No focal deficits Other Neuro/Psych comments:: no focal signs Misc: Normal back, No paraspinal tenderness ED Labs/Radiology/EKG Results - Lab Results Results: Laboratory Tests 11/04/18 15:40 POC Glucose 125 H Comments:: deferred by pt - Radiology Results Comments:: X-Rays: deferred by pt ED Septic Shock - . Is Septic Shock (SBP<90, OR Lactate>4 mmol\L) present?: No - <6hrs of presentation: Vital Signs: Vital Signs - 8 hr 11/04/18 11/04/18 15:11 15:34 Temp 98.3 F 98.3 F HR 82 82 RR 18 18 BP 150/64 150/64 O2 Sat % 99 99 ED Reassessment (Disposition) - Reassessment Reassessment:: pt tolerated po fluids well in ER; pt is asymptomatic upon discharge Reassessment Condition:: Improved - Diagnosis Diagnosis:: Dysuria; UTI; Congestion; Sinus Headaches; Vascular Cephalgia; Sinusitis; Sore Throat; Pharyngitis; Cough; Bronchitis; Fever; URI; HTN; DM; Hyperlipidemia; Asthma - Aftercare/Follow up Instructions Aftercare/Follow-Up Instructions:: Counseled pt regarding lab results/diagnosis & need follow up, Refer to Discharge Instructions, Counseled pt & family regarding lab results/diagnosis & need follow up Medication Prescribed:: Rx: Amoxicillin 500mg po tid x 10 days; Robitussin DM; Tylenol; Salt Water Gargles; Cool Mist Vaporizer; take all medications as prescribed; encourage fluids especially citric acid juices - Patient Disposition Discharge/Transfer:: Home Condition at Disposition:: Stable, Improved (RTER prn if existing s/s reoccur and/or get worse and/or any other new s/s occur; ACIs given for all above Dx; Refer to ENT Specialist/Sitecore Developer/Urologist/Grinder Hand ERROL; Have Blood Pressure re-checked in one day by PMD; F/U with PMD in one day or prn; RTER prn if concerned)
== END 2018-11-04 15:45 | disposition home or self-care (01) ==
LOC: ER 14:56
DX: N39.0 Urinary tract infection, site not specified (principal); I10 Essential (primary) hypertension; E11.9 Type 2 diabetes mellitus without complications; E78.5 Hyperlipidemia, unspecified; J45.909 Unspecified asthma, uncomplicated; G44.1 Vascular headache, not elsewhere classified; J32.9 Chronic sinusitis, unspecified
CPT/HCPCS: 82948-90; Z7502